=== PATIENT | female | born 1955 | race African-American/Black ===

== ENCOUNTER 2016-10-05 11:04 | Emergency (ER) | payer MEDICARE, OTHER ==
--- NOTE | ~2016-10-05 | CT4 ---
[facility] A Service of [facility] RADIOLOGY TEXT RESULTS PATIENT: ELENA AGUILAR LOCATION: [facility] : 53 UNIT #: [id number] AGE: [address]: Meir Colon MD SEX: F ORDER DR: [id number] [facility] [address] [place], [place] [address] [id number] E MR#: [id number] Acc #: [id number] NAME: ELENA AGUILAR : 1955 SEX: F STUDY DATE/TIME: 10/05/2016 1255 UNIT: [facility] ROOM: STUDY DESCRIPTION: CT Abd and Pelv Wo Cont Attending Physician: Meir Colon M.D. Ordering Physician: Ed Doctor [id number] [facility] Primary Care Physician: Reinaldo Zavaleta M.D. MEDICAL IMAGING REPORT This report is preliminary unless electronic signature is present EXAM CT abdomen and pelvis without contrast 10/05/2016 HISTORY 61-year-old woman complaining of left flank pain with loss of appetite for 3 days, dark urine. COMPARISON STUDIES None TECHNIQUE Helical noncontrasted images were obtained from the lung bases through the pubic symphysis without oral or intravenous contrast. Sagittal and coronal reconstructions were performed. Total exam DLP 825 mGy-cm. This CT exam was performed with one or more of the following radiation dose reduction techniques: automatic exposure control, adjustment of mA and/or kV according to patient size, and iterative reconstruction. FINDINGS Images through the lung bases demonstrate linear atelectasis or scar in the lingula and left lower lobe. There is no evidence of a nodule or effusion. Noncontrasted images through the abdomen demonstrate a normal appearance to the liver, spleen and pancreas. The gallbladder is filled with stones. There is no definite gallbladder wall thickening or bile duct dilatation. The adrenal glands are normal. The kidneys demonstrate no mass, stone or dilatation. There is no ureterectasis or ureteral calculus. The stomach is contracted and unopacified but appears normal. There is no [facility] A Service [facility] RADIOLOGY TEXT RESULTS PATIENT: [facility]LENA AGUILAR [id number] 53 UNIT #: [id number] AGE: [address]: Meir Colon MD SEX: F ORDER DR: small bowel distension or small bowel wall thickening. The appendix is normal. The colon is nondistended. There is no colonic wall thickening. There are a few uncomplicated diverticula at the junction of descending colon and sigmoid colon. The rectum is decompressed. The uterus is mildly enlarged with calcified leiomyomata present. There is a dense 2.6 x 2.4 cm well circumscribed structure in the right posterior adnexa. I believe this is associated with the right ovary and likely represents a complex cyst. This could be confirmed with ultrasound. There is no pelvic free fluid. IMPRESSION 1. No renal or ureteral calculi. 2. The gallbladder is filled with tiny stones. There is no evidence of acute inflammation or bile duct dilatation. 3. Normal appendix. 4. There are a few uncomplicated diverticula of the colon in the descending colon/sigmoid colon junction region. No colonic wall thickening or inflammation. 5. Mildly enlarged uterus with calcified leiomyomata present. 6. Dense ovoid 2.6 cm lesion right posterior adnexa, which I believe is a part of the right ovary likely a complex cyst. Consider pelvic ultrasound for further evaluation. Dictated by... Paige Oglesby M.D. THIS IS AN ELECTRONICALLY VERIFIED REPORT Paige Oglesby M.D. at 10/06/2016 8:58 AM Shankar TD: 10/05/2016 15:15 JOB #: [id number] MEDICAL IMAGING REPORT COPY
[2016-10-05 10:49] LABS: URINE SOURCE CLEAN CATCH
[2016-10-05 10:56] LABS: URINE APPEARANCE CLOUDY; URINE BLOOD NEG (NEG); URINE COLOR DK YELLOW; URINE GLUCOSE NEG (NEG); URINE KETONE TRACE (NEG); URINE LEUKOCYTE ESTERASE 1+ (NEG); URINE NITRATE NEG (NEG); URINE PH 5.5 (5-8); URINE PROTEIN NEG (NEG); URINE SPECIFIC GRAVITY 1.029 (1.003-1.035)
[2016-10-05 11:00] LABS: CULTURE INDICATED? YES; URINE BACTERIA AUWI 2+ (NEGATIVE); URINE SQUAMOUS EPITHELIAL CELL FEW /[HPF]
[~2016-10-05 11:04] MED LIST: AMLODIPINE BESY10 MG PO; AUGMENTIN PO; LASIX20 MG PO; LIPITOR PO; LORTAB 5/500 TA1 TA1 PO; POTASSIUM CHLO10 ME1 PO
[2016-10-05 11:19] LABS: URINE BILIRUBIN NEG (NEG)
[2016-10-05 11:20] LABS: U HYALINE CASTS AUWI 0-2 /[LPF]
== END 2016-10-05 13:55 | disposition home or self-care (01) ==
LOC: CED 11:04
PROVIDERS: Emergency Medicine
DX: N39.0 Urinary tract infection, site not specified (principal); I10 Essential (primary) hypertension; F32.9 Major depressive disorder, single episode, unspecified; F17.210 Nicotine dependence, cigarettes, uncomplicated
CPT/HCPCS: 36415; 74176; 81003; 87086; 96361; 96372; 96374; 99284; J0500; J2405